=== PATIENT | female | born 1955 | race Caucasian/White ===

== ENCOUNTER 2018-12-01 07:31 | Emergency (ER) | payer OTHER ==
[2018-12-01 08:10] LABS: Bilirubin Negative (Negative); Blood, Urine Trace (Negative); Clarity Clear (Clear); Glucose, Urine (Dipstick) Negative (Negative); Leukocyte Trace (Negative); Nitrite Negative (Negative); Protein, Urine (Dipstick) Negative (Neg-Trace); Specific Gravity, Urine 1.015 (1.005-1.030); Urobilinogen 0.2 mg/dL (0.2-1.0); pH, Urine 6.5 (5.0-9.0)
[2018-12-01 08:11] LABS: Bacteria/HPF 1+ HPF (None Seen); RBC/HPF 0-3 HPF (0-3); Squamous Epithelial 0-3 HPF (0-3); WBC/HPF 0-3 HPF (0-3); Yeast-All Forms Rare HPF (None Seen)
[2018-12-01] MEDS ORDERED: traMADol HCl 50 MG TAB ONE (08:19)
[2018-12-01] MEDS ORDERED: Acetaminophen/Codeine 30-300mg Tablet ONE (08:26)
== END 2018-12-01 08:31 | disposition home or self-care (01) ==
LOC: BURERS 07:31
DX: G89.29 Other chronic pain (principal); M54.5 Low back pain; I10 Essential (primary) hypertension; I48.91 Unspecified atrial fibrillation; F41.9 Anxiety disorder, unspecified; F32.9 Major depressive disorder, single episode, unspecified; Z79.899 Other long term (current) drug therapy
CPT/HCPCS: 81003; 81015; 99283

== ENCOUNTER 2019-05-12 20:14 | Emergency (ER) | payer OTHER ==
[2019-05-12] MEDS ORDERED: traMADol HCl 50 MG TAB ONE (20:54)
[2019-05-12 21:13] LABS: Hemoglobin 12.6 g/dL (12.0-16.0); Mean Corpuscular HGB CONC 32.8 g/dL (32.0-36.0); Mean Corpuscular Hemoglobin 30.6 pg (27.0-31.0); Mean Corpuscular Volume 93.5 fL (78.0-98.0); Red Blood Cell (RBC) Count 4.11 mill/uL (4.20-5.40); White Blood Cell (WBC) Count 6.3 thou/uL (4.8-10.8)
[2019-05-12 21:14] LABS: %Lymphocytes 16.7 % (21.0-51.0); %Neutrophils 62.2 % (42.0-75.0); Mean Platelet Volume 8.4 fL (7.4-10.4); Platelet Count 211 thou/uL (130-400); RBC Distribution Width 12.5 % (11.5-14.5)
[2019-05-12 21:15] LABS: %Basophils 4.1 % (0.0-1.0); %Eosinophils 1.4 % (0.0-10.0); %Monocytes 15.6 % (0.0-10.0)
[2019-05-12 21:16] LABS: #Basophils 0.3 thou/uL (0.0-0.2); #Eosinphils 0.1 thou/uL (0.0-0.7); #Neutrophils 3.9 thou/uL (1.40-6.50)
[2019-05-12 21:19] LABS: Albumin 3.7 g/dL (3.4-4.8); Chloride 107 mmol/L (98-107); Globulin 3.5 g/dL (2.4-3.5); Glucose 91 mg/dL (80-115); Potassium 3.8 mmol/L (3.5-5.1); Protein, Total 7.2 g/dL (5.8-8.1); Sodium 142 mmol/L (136-145)
[2019-05-12 21:21] LABS: Bilirubin, Total Less than 0.2 mg/dL (0.2-1.2); Carbon Dioxide 26 mmol/L (23-31)
[2019-05-12 21:24] LABS: ALT (SGPT) 11 U/L (8-55); AST (SGOT) 17 U/L (5-34); Alkaline Phosphatase 97 U/L (40-110); Anion Gap 13 mmol/L (10-20); BUN (Urea Nitrogen) 7 mg/dL (9.8-20.1); Calc. Creatinine Clearance 0 mL/min (70-130); Estimated GFR-MDRD 79
--- NOTE | 2019-05-12 22:43 | RAD ---
PORTABLE CHEST: 05/12/19 An AP portable film at 2103 is presented with no prior films available for comparison. The heart is not large. The interstitial markings of the lungs are rather prominent, however. I am no t convinced that the upper lobe vessels are congested or not. No large effusions are seen, though the re might be a small one in the left base. In general, the left base is not seen as well as the right. Arteriosclerotic change is seen in the aorta. IMPRESSION: Mild interstitial prominence. POS: HOME
[2019-05-13 13:06] LABS: Eosinophils 6 % (0-10); Lymphocytes 19 % (21-51); MDiff Complete? YES; Monocytes 6 % (0-10); Neutrophil 69 % (42-75)
== END 2019-05-12 22:40 | disposition home or self-care (01) ==
LOC: BURERS 20:14
DX: I10 Essential (primary) hypertension (principal); F43.0 Acute stress reaction; I48.91 Unspecified atrial fibrillation; G43.909 Migraine, unspecified, not intractable, without status migrainosus; E78.00 Pure hypercholesterolemia, unspecified; F41.9 Anxiety disorder, unspecified; F32.9 Major depressive disorder, single episode, unspecified; Z87.891 Personal history of nicotine dependence; Z79.891 Long term (current) use of opiate analgesic; Z79.899 Other long term (current) drug therapy
CPT/HCPCS: 71045; 80053; 83880; 84484; 85025; 93005

== ENCOUNTER 2020-03-07 22:30 | Emergency (ER) | payer BC, OTHER | END 2020-03-07 23:00 | disposition home or self-care (01) | LOC: BURERS 22:30 | DX: I10 Essential (primary) hypertension (principal); I48.91 Unspecified atrial fibrillation; E78.00 Pure hypercholesterolemia, unspecified; F32.9 Major depressive disorder, single episode, unspecified; Z87.891 Personal history of nicotine dependence; Z79.899 Other long term (current) drug therapy | CPT/HCPCS: 99281 ==

== ENCOUNTER 2022-01-18 00:07 | Emergency (ER) | payer MEDICARE ==
[2022-01-18] MEDS ORDERED: Nitroglycerin 0.4 MG TAB 1 EACH ONE (00:29)
[2022-01-18] MEDS ORDERED: Aspirin Chewable 81 MG TAB ONE (00:29)
[2022-01-18 01:58] LABS: ALT (SGPT) 11 U/L (8-55); AST (SGOT) 17 U/L (5-34); Albumin 3.7 g/dL (3.4-4.8); Alkaline Phosphatase 72 U/L (40-110); Anion Gap 17 mmol/L (10-20); BUN (Urea Nitrogen) 7 mg/dL (9.8-20.1); Bilirubin, Total 0.5 mg/dL (0.2-1.2); Calc. Creatinine Clearance 0 mL/min (70-130); Calcium 8.5 mg/dL (7.8-10.44); Carbon Dioxide 22 mmol/L (23-31); Chloride 107 mmol/L (98-107); Globulin 3.7 g/dL (2.4-3.5); Glucose 104 mg/dL (80-115); Potassium 3.7 mmol/L (3.5-5.1); Protein, Total 7.4 g/dL (5.8-8.1); Sodium 142 mmol/L (136-145)
[2022-01-18 02:01] LABS: #Basophils 0.1 thou/uL (0.0-0.2); #Eosinphils 0.1 thou/uL (0.0-0.7); #Lymphocytes 1.1 thou/uL (1.20-3.40); #Monocytes 0.7 thou/uL (0.11-0.59); #Neutrophils 4.6 thou/uL (1.40-6.50); %Basophils 1.8 % (0.0-1.0); %Eosinophils 0.8 % (0.0-10.0); %Neutrophils 70.5 % (42.0-75.0); Mean Corpuscular HGB CONC 34.9 g/dL (32.0-36.0); Mean Corpuscular Volume 97.3 fL (78.0-98.0); Mean Platelet Volume 10.5 fL (7.4-10.4); Platelet Count 148 thou/uL (130-400); RBC Distribution Width 11.7 % (11.5-14.5); Red Blood Cell (RBC) Count 3.55 mill/uL (4.20-5.40); White Blood Cell (WBC) Count 6.5 thou/uL (4.8-10.8)
[2022-01-18 04:27] LABS: SARS-CoV-2 NAA Rapid Test Not Detected (NotDetected)
== END 2022-01-18 03:55 | disposition short-term general hospital (02) ==
LOC: BURERS 00:07
DX: R07.9 Chest pain, unspecified (principal); Z20.822 Contact with and (suspected) exposure to COVID-19; I10 Essential (primary) hypertension; I48.91 Unspecified atrial fibrillation; E78.00 Pure hypercholesterolemia, unspecified; Z87.891 Personal history of nicotine dependence; Z79.899 Other long term (current) drug therapy
CPT/HCPCS: 71045; 80053; 83880; 84484; 85025; 93005; 94760; U0002; 36415

== ENCOUNTER 2022-12-09 17:51 | Emergency (ER) | payer MEDICARE ==
[2022-12-09] MEDS ORDERED: hydrOXYzine 25 MG TAB ONE (18:19)
[2022-12-09] MEDS ORDERED: cloNIDine 0.1 MG TAB ONE (18:55)
== END 2022-12-09 19:05 | disposition home or self-care (01) ==
LOC: BURERS 17:51
DX: I10 Essential (primary) hypertension (principal); F41.9 Anxiety disorder, unspecified; E78.00 Pure hypercholesterolemia, unspecified; Z87.891 Personal history of nicotine dependence; Z79.899 Other long term (current) drug therapy

== ENCOUNTER 2023-03-31 13:38 | Emergency (ER) | payer MEDICARE | END 2023-03-31 14:14 | disposition home or self-care (01) | LOC: BURERS 13:38 | DX: S09.11XA Strain of muscle and tendon of head, initial encounter (principal); I10 Essential (primary) hypertension; I48.91 Unspecified atrial fibrillation; X50.0XXA Overexertion from strenuous movement or load, initial encounter; Y93.89 Activity, other specified; Z87.891 Personal history of nicotine dependence | CPT/HCPCS: 99283 ==

== ENCOUNTER 2024-02-09 17:54 | Emergency (ER) | payer MEDICARE ==
[2024-02-09] MEDS ORDERED: Aspirin Chewable 81 MG TAB ONE (18:09)
[2024-02-09] MEDS ORDERED: Nitroglycerin 0.4 MG TAB 1 EACH ONE (18:09)
[2024-02-09 18:11] LABS: #Eosinphils 0.1 thou/uL (0.0-0.7); #Lymphocytes 2.3 thou/uL (1.20-3.40); #Monocytes 0.5 thou/uL (0.11-0.59); #Neutrophils 8.1 thou/uL (1.40-6.50); %Basophils 0.4 % (0.0-1.0); %Eosinophils 0.5 % (0.0-10.0); %Lymphocytes 21.2 % (21.0-51.0); %Monocytes 4.2 % (0.0-10.0); %Neutrophils 73.8 % (42.0-75.0); Hematocrit 42.2 % (36.0-47.0); Hemoglobin 13.8 g/dL (12.0-16.0); Mean Corpuscular HGB CONC 32.7 g/dL (32.0-36.0); Mean Corpuscular Hemoglobin 31.4 pg (27.0-31.0); Mean Platelet Volume 9.7 fL (7.4-10.4); Platelet Count 190 10x3/uL (130-400); RBC Distribution Width 11.3 % (11.5-14.5); Red Blood Cell (RBC) Count 4.39 mill/uL (4.20-5.40); White Blood Cell (WBC) Count 10.9 10x3/uL (4.8-10.8)
[2024-02-09 18:24] LABS: PTT 24.5 sec (22.9-36.1)
[2024-02-09 18:30] LABS: Troponin I Less than 0.010 ng/mL (< 0.028)
[2024-02-09 18:32] LABS: ALT (SGPT) 12 U/L (8-55); AST (SGOT) 16 U/L (5-34); Albumin 3.8 g/dL (3.4-4.8); Alkaline Phosphatase 91 U/L (40-110); Anion Gap 12 mmol/L (10-20); BUN (Urea Nitrogen) 11 mg/dL (9.8-20.1); Bilirubin, Total 0.3 mg/dL (0.2-1.2); Calc. Creatinine Clearance 0 mL/min (70-130); Carbon Dioxide 23 mmol/L (23-31); Chloride 109 mmol/L (98-107); Estimated GFR 82; Globulin 3.1 g/dL (2.4-3.5); Glucose 99 mg/dL (80-115); Potassium 3.6 mmol/L (3.5-5.1); Protein, Total 6.9 g/dL (5.8-8.1); Sodium 140 mmol/L (136-145)
== END 2024-02-09 21:57 | disposition short-term general hospital (02) ==
LOC: BURERS 17:54
DX: R07.89 Other chest pain (principal); I10 Essential (primary) hypertension; E78.00 Pure hypercholesterolemia, unspecified; Z87.891 Personal history of nicotine dependence; Z79.899 Other long term (current) drug therapy
CPT/HCPCS: 71045; 80053; 83880; 84484; 85025; 85610; 85730; 93005; 94760

== ENCOUNTER 2024-06-07 20:56 | Emergency (ER) | payer MEDICARE ==
[2024-06-07 21:42] LABS: #Basophils 0.1 thou/uL (0.0-0.2); #Eosinophils 0.1 thou/uL (0.0-0.7); #Lymphocytes 1.3 thou/uL (1.20-3.40); #Neutrophils 7.1 thou/uL (1.40-6.50); %Basophils 1.3 % (0.0-1.0); %Eosinophils 0.8 % (0.0-10.0); %Lymphocytes 13.4 % (21.0-51.0); %Monocytes 10.7 % (0.0-10.0); %Neutrophils 73.7 % (42.0-75.0); Hematocrit 41.4 % (36.0-47.0); Mean Corpuscular HGB CONC 31.3 g/dL (32.0-36.0); Mean Corpuscular Hemoglobin 31.1 pg (27.0-31.0); Mean Corpuscular Volume 99.1 fl (78.0-98.0); Mean Platelet Volume 10.2 fL (7.4-10.4); Platelet Count 204 10x3/uL (130-400); RBC Distribution Width 11.4 % (11.5-14.5); Red Blood Cell (RBC) Count 4.17 mill/uL (4.20-5.40); White Blood Cell (WBC) Count 9.7 10x3/uL (4.8-10.8)
[2024-06-07 21:52] LABS: ALT (SGPT) 11 U/L (8-55); AST (SGOT) 19 U/L (5-34); Albumin 3.4 g/dL (3.4-4.8); Alkaline Phosphatase 104 U/L (40-110); Anion Gap 11 mmol/L (10-20); BUN (Urea Nitrogen) 8 mg/dL (9.8-20.1); Bilirubin, Total 0.4 mg/dL (0.2-1.2); Calc. Creatinine Clearance 0 mL/min (70-130); Carbon Dioxide 29 mmol/L (23-31); Chloride 104 mmol/L (98-107); Estimated GFR 80; Globulin 3.8 g/dL (2.4-3.5); Glucose 104 mg/dL (80-115); Lipase 96 U/L (8-78); Potassium 3.7 mmol/L (3.5-5.1); Protein, Total 7.2 g/dL (5.8-8.1); Sodium 140 mmol/L (136-145)
[2024-06-07 21:56] LABS: Troponin I 0.015 ng/mL (< 0.028)
[2024-06-07] MEDS ORDERED: Dicyclomine 20 MG/2 ML VIAL ONE (22:18)
[2024-06-07] MEDS ORDERED: Ondansetron ODT 4 MG TAB ONE (22:19)
== END 2024-06-07 23:00 | disposition home or self-care (01) ==
LOC: BURERS 20:56
DX: K80.50 Calculus of bile duct without cholangitis or cholecystitis without obstruction (principal); I10 Essential (primary) hypertension; E78.00 Pure hypercholesterolemia, unspecified; I48.91 Unspecified atrial fibrillation; Z87.891 Personal history of nicotine dependence; Z79.899 Other long term (current) drug therapy; Z55.6 Problems related to health literacy
CPT/HCPCS: 80053; 83690; 84484; 85025; 93005; 96372; 99284; Q0162; 36415